=== PATIENT | female | born 1955 | race Caucasian/White ===

== ENCOUNTER → 2023-10-02 | Outpatient (REF) | payer MEDICARE, OTHER ==
[~2023-10-02] MED LIST: LIDOCAINE HCL 1% LOCAL INJ 20 ML VIAL ONE
[2023-10-02 08:59] LABS: BASOPHILS % 0.7 % (0.0-1.0); EOSINOPHILS # (AUTO) 0.2 (0.0-0.4); HEMATOCRIT 36.6 % (34.2-44.1); HEMOGLOBIN 12.5 g/dL (12.0-16.0); LYMPHOCYTES % 48.3 % (18.0-39.1); MEAN CORPUSCULAR HEMOGLOBIN 31.2 pg (28-32); MEAN CORPUSCULAR HGB CONC 34.2 g/dL (31-35); MEAN CORPUSCULAR VOLUME 91.3 fL (81-99); MONOCYTES # (AUTO) 0.2 (0.2-0.8); MONOCYTES % 5.7 % (4.4-11.3); NEUTROPHILS # (AUTO) 1.7 (2.1-6.9); NEUTROPHILS % 41.3 % (38.7-80.0); PLATELET COUNT 186 x10e3/uL (140-360); RED BLOOD COUNT 4.01 x10e6/uL (3.6-5.1); RED CELL DISTRIBUTION WIDTH 12.5 % (11.7-14.4)
[2023-10-02 09:12] LABS: INR 0.85; PROTHROMBIN TIME 12.2 seconds (11.9-14.5)
[2023-10-02 12:43] LABS: APPEARANCE,CSF CLEAR (CLEAR); COLOR,CSF COLORLESS (COLORLESS); TUBE NUMBER 3
[2023-10-02 12:45] LABS: RED BLOOD CELL,CSF 14 cells/uL (0-10); WHITE BLOOD CELL,CSF 0 cells/uL (0-5)
[2023-10-02 12:51] LABS: TOTAL PROTEIN,CSF 30.9 mg/dL (15-40)
== END ==
LOC: DX 08:26
PROVIDERS: ATTEND Psychiatry & Neurology Clinical Neurophysiology
DX: G37.9 Demyelinating disease of central nervous system, unspecified (principal)
CPT/HCPCS: 36415; 62328; 82040; 82784; 82945; 83520; 83873; 83916; 84157; 84165; 85025; 85610; 85730; 86592; 89051; J2001